=== PATIENT | male | born 1970 | race Two or more races ===

== ENCOUNTER 2020-08-11 07:02 | Day surgery (SDC) | payer OTHER | END 2020-08-11 11:30 | disposition home or self-care (01) | LOC: AMB-ENDOS 07:02 | PROVIDERS: ATTEND Surgery | DX: K62.89 Other specified diseases of anus and rectum (principal); Z20.822 Contact with and (suspected) exposure to COVID-19; Z12.11 Encounter for screening for malignant neoplasm of colon ==